=== PATIENT | female | born 1930 | race Caucasian/White ===

== ENCOUNTER 2016-04-25 11:07 | Emergency (ER) | payer MEDICARE ==
[~2016-04-25 11:07] MED LIST: AMLO10TA2 PO; ARAV1TAB PO; ASPI1TAB PO; ASPI81TA85 PO; ATOR1TAB19 PO; AUGM875T27 PO; DONETAB5 PO; FERR32TA PO; FOLI1TAB86 PO; FOLI400T PO; FOSA70TA PO; HYDR20VL IV; LEFL10TA2 PO; LIDO1DIS2 TD; LISI10TA4 PO; MERO500I IV; METO50TA2 PO; RANI75SY PO; SIMV40TA2 PO; TRAM50TA2 PO; TRAZ100T4 PO; TRAZ25TA PO; TRAZ50TA2 PO; TRAZ50TA4 PO; TYLE325T5 PO; VALS1TAB49 PO; VITA100037 PO; VITA100066 PO; [UNRECOGNIZED DRUG - CODE] XX
--- NOTE | 2016-04-25 12:47 | EDDOCDS ---
Nurse's Notes [facility] Name: Dara Modi Age: 85 yrs Sex: Female : 1930 Arrival Date: 04/25/2016 Time: 11:07 Bed PR Private MD: Sumi Mendes E Diagnosis: Pain in left shoulder Presentation: 04/25 11:12 Presenting complaint: Patient states: patient states pain and swelling in left shoulder ml6 x 1 month, denies injury, sent here from [facility] by Dr. Mendes. Adult Sepsis Screening: The patient does not have new or worsening altered mentation. Patient's respiratory rate is less than 22. Systolic blood pressure is greater than 100. Patient has a qSOFA score of 0- Negative Sepsis Screen. Suicide/Homicide risk assessment- the patient denies having any suicidal and/or homicidal ideations and does not present with any other emotional, behavioral or mental health complaints. 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 Transition of care: patient was not received from another setting of care. 11:12 Acuity: SCOTT Level 4 ml6 11:12 Method Of Arrival: Walkin/Carried/Asstd ml6 Triage Assessment: 11:17 General: Appears in no apparent distress, Behavior is appropriate for age, cooperative. ml6 Pain: Location: anterior aspect of left shoulder and posterior aspect of left shoulder Pain currently is 3 out of 10 on a pain scale. Pain does not radiate. Quality of pain is described as aching, Pain began 2-3 days ago Is continuous Alleviated by nothing. Aggravated by increased activity. Neurological: No deficits noted. Cardiovascular: No deficits noted. Respiratory: No deficits noted. GI: No deficits noted. Musculoskeletal: Circulation, motion, and sensation intact Capillary refill < 3 seconds is brisk in bilateral fingers toes Range of motion limited in left shoulder, left elbow, left wrist, left hip, left knee, left ankle, right shoulder, right elbow, right wrist, right hip, right knee and right ankle. Historical: - Allergies: PENICILLINS; - Home Meds: 1. atorvastatin 10 mg oral tab 1 tab once daily (Last dose: 04/24/2016 20:00) 2. donepezil 5 mg oral TbDL 1 tab nightly (Last dose: 04/24/2016 20:00) 3. ferrous gluconate 324 mg (36 mg iron) Oral tab daily (Last dose: 04/25/2016 09:00) 4. folic acid 400 mcg Oral tab 1 tab once daily (Last dose: 04/25/2016 09:00) 5. leflunomide 10 mg oral tab 1 tab once daily (Last dose: 04/25/2016 09:00) 6. metoprolol tartrate 50 mg Oral tab once daily (Last dose: 04/25/2016 09:00) 7. Trazodone Oral 50 mg tab take 1/2 to 1 tab at bedtime (Last dose: 04/24/2016 20:00) 8. valsartan 40 mg oral tab 1 tab nightly (Last dose: 04/25/2016 09:00) 9. Vitamin D3 1,000 unit oral tab daily (Last dose: 04/25/2016 09:00) - PMHx: Dementia; Hypercholesterolemia; Hypertension; Rheumatoid Arthritis; - PSHx: nodules removed from hands; 2 breast operations; Cataract Surgery- Bilateral; spinal cyst removal; Carotid surgery; Hysterectomy; - Social history: Smoking status: Patient states was never smoker of tobacco. No barriers to communication noted, Speaks appropriately for age. - Family history: Not pertinent. - : The pt / caregiver states he / she is not on anticoagulants. Home medication list is obtained from the patient. - Exposure Risk Screening:: None identified. Screenin:09 Infection Control. [facility] 12:44 Screening information is obtained from the patient. Fall risk: At risk due to gait pml disturbance. Assistance ADL's: requires no assistance with activities of daily living. Abuse/DV Screen: The patient / caregiver reports he/she is: not in a situation that causes fear, pain or injury. Nutritional screening: No deficits noted. Advance Directives: Currently, there is no health care proxy. home support is adequate. Assessment: 12:44 General: Appears in no apparent distress, Behavior is appropriate for age, cooperative. pml Pain: Location: right shoulder. Neurological: Level of Consciousness is awake, alert, Oriented to person, place, time. Cardiovascular: Capillary refill < 3 seconds. Respiratory: Airway is patent Respiratory effort is even, unlabored. GI: Abdomen is non- distended. Derm: Skin is pink, warm & dry. Musculoskeletal: Circulation, motion, and sensation intact Capillary refill < 3 seconds. Vital Signs: 11:09 BP 154 / 79; Pulse 68; Resp 16; Temp 97.0(O); Pulse Ox 98% on R/A; Weight 43.09 kg (R); elp Height 5 ft. 0 in. (152.40 cm) (R); Pain 7/10; 12:41 BP 179 / 89; Pulse 70; Resp 18; Temp 97.0(T); Pulse Ox 95% on R/A; Pain 7/10; rs6 11:09 Body Mass Index 18.55 (43.09 kg, 152.40 cm) elp Vitals: 11:09 Log In Time: April 25, 2016 at 11:07. elp ED Course: 11:09 Patient visited by Amada Lucio PCA. elp 11:09 Sumi Mendes is Private Physician. elp 11:09 Patient moved to Waiting elp 11:10 Patient visited by Amada Lucio PCA. elp 11:10 Patient moved to Pre RCE elp 11:12 Triage Initiated ml6 11:18 Patient moved to Triage 2 ml6 11:25 [facility]ador [facility]. dt4 11:25 Danny Sarmiento MD is Attending Physician. dt4 11:25 Patient visited by Veronika Amador PA-C. dt4 11:39 Patient moved to TR4 [facility] 12:20 [facility] Payment Agreement was scanned into [employer] and attached to record. lg 12:37 Patient moved to PR1 / 25 rs6 12:39 [facility] is Referral Physician. dt4 12:40 Patient moved to PR2 / 26 jb5 12:42 Patient visited by Adri Hamm PCA. rs6 12:44 The patient / caregiver is instructed regarding the plan of care and ED course. Patient pml has correct armband on for positive identification. Bed in low position. Call light in reach. 12:44 No IV's were initiated during this patient's visit. No procedures done that require pml assistance. Order Results: There are currently no results for this order. Outcome: 12:39 Discharge ordered by Provider. dt4 12:44 Discharge Assessment: Patient awake, alert and oriented x 3. No cognitive and/or pml functional deficits noted. Patient verbalized understanding of disposition instructions. patient administered narcotics - no. The following High Risk Discharge criteria are identified: None. Discharged to group home. Report called to RN 7th floor. Condition: good Condition: stable. Discharge instructions given to patient, Instructed on discharge instructions, follow up and referral plans. Demonstrated understanding of instructions, Pt was receptive of discharge instructions/ teaching. No special radiology studies were completed. Property :Personal belongings accompany Pt. 12:46 Patient left the ED. pml Signatures: Lloyd Motley, Reg Reg lg Rohini Alberts, HEAD SILVERMAN HEAD SILVERMAN jb5 Louis Jarvis RN RN ml6 Camryn Larry RN RN pml Amada Lucio, HEAD SILVERMAN HEAD SILVERMAN elp Veronika Amador, PA-Tyra PA-C dt4 Adri Hamm, HEAD SILVERMAN HEAD SILVERMAN rs6 Corrections: (The following items were deleted from the chart) 11:18 11:12 Presenting complaint: Patient states: patient states pain and swelling in left ml6 shoulder, denies injury ml6 MTDD
--- NOTE | 2016-04-25 12:47 | EDDOCDS ---
Physician Documentation [facility] Name: Dara Modi Age: 85 yrs Sex: Female : 1930 Arrival Date: 04/25/2016 Time: 11:07 Bed Private MD: Smui Mendes E Disposition: 04/25/16 12:39 Discharged to Home/Self Care. Impression: Pain in left shoulder. - Condition is Stable. - Discharge Instructions: Arthralgia. - Medication Reconciliation, Local Pharmacy Hours form. - Follow up: Emergency Department; When: As needed; Reason: Worsening of conditions. Follow up: Private Physician; When: 2 - 3 days; Reason: Wound/Symptom Recheck, Recheck today's complaints, Continuance of care. Follow up: [facility]; When: Call to arrange an appointment; Reason: Wound/Symptom Recheck, Further diagnostic work-up, Recheck today's complaints, Continuance of care, To establish care. - Problem is new. - Symptoms are unchanged. - Notes: THERE WAS NO FRACTURE ON YOUR XRAYS TODAY, BUT THERE WAS SOME BONE EROSION WHERE YOUR ROTATOR CUFF ATTACHES TO YOUR SHOULDER. PLEASE FOLLOW UP WITH YOUR PRIMARY CARE PROVIDER OR ORTHOPEDICS, OR BOTH, TO FURTHER EVALUATE THESE SYMPTOMS. TYLENOL DIRECTED FOR PAIN. Historical: - Allergies: PENICILLINS; - Home Meds: 1. atorvastatin 10 mg oral tab 1 tab once daily (Last dose: 04/24/2016 20:00) 2. donepezil 5 mg oral TbDL 1 tab nightly (Last dose: 04/24/2016 20:00) 3. ferrous gluconate 324 mg (36 mg iron) Oral tab daily (Last dose: 04/25/2016 09:00) 4. folic acid 400 mcg Oral tab 1 tab once daily (Last dose: 04/25/2016 09:00) 5. leflunomide 10 mg oral tab 1 tab once daily (Last dose: 04/25/2016 09:00) 6. metoprolol tartrate 50 mg Oral tab once daily (Last dose: 04/25/2016 09:00) 7. Trazodone Oral 50 mg tab take 1/2 to 1 tab at bedtime (Last dose: 04/24/2016 20:00) 8. valsartan 40 mg oral tab 1 tab nightly (Last dose: 04/25/2016 09:00) 9. Vitamin D3 1,000 unit oral tab daily (Last dose: 04/25/2016 09:00) - PMHx: Dementia; Hypercholesterolemia; Hypertension; Rheumatoid Arthritis; - PSHx: nodules removed from hands; 2 breast operations; Cataract Surgery- Bilateral; spinal cyst removal; Carotid surgery; Hysterectomy; - Social history: Smoking status: Patient states was never smoker of tobacco. No barriers to communication noted, Speaks appropriately for age. - Family history: Not pertinent. - : The pt / caregiver states he / she is not on anticoagulants. Home medication list is obtained from the patient. - Exposure Risk Screening:: None identified. Vital Signs: 04/25 11:09 BP 154 / 79; Pulse 68; Resp 16; Temp 97.0(O); Pulse Ox 98% on R/A; Weight 43.09 kg / 95 elp lbs (R); Height 5 ft. 0 in. (152.40 cm) (R); Pain 7/10; 12:41 BP 179 / 89; Pulse 70; Resp 18; Temp 97.0(T); Pulse Ox 95% on R/A; Pain 7/10; rs6 11:09 Body Mass Index 18.55 (43.09 kg, 152.40 cm) elp MDM: 11:30 Financial registration complete. lg 11:35 Shoulder, Complete Ordered. EDMS 12:20 [facility] Payment Agreement was scanned into [employer] and attached to record. lg Signatures: Dispatcher [employer] EDNY Lloyd Motley, Tarun Reg lg Louis Jarvis RN RN ml6 Camryn Larry RN RN pml Veronika Amador, LLOYD DESAI dt4 The chart was reviewed and I authenticate all verbal orders and agree with the evaluation and treatment provided.Attachments: 12:20 [facility] Payment Agreement lg MTDD
--- NOTE | 2016-04-25 12:49 | REP ---
LEFT SHOULDER: Three views of the left shoulder are performed. I see no acute fracture or dislocation. Mild smooth erosive change is seen along the superolateral humeral head at the tendinous insertion of the rotator cuff tendons. IMPRESSION: No acute fracture or dislocation. Signed by Sabino Bae MD 04/25/2016 01:30 P
--- NOTE | 2016-04-27 13:48 | EDDOCDS ---
Physician Documentation [facility] Name: Dara Modi Age: 85 yrs Sex: Female : 1930 Arrival Date: 04/25/2016 Time: 11:07 Bed Private MD: Sumi Mendes E Disposition: 04/25/16 12:39 Discharged to Home/Self Care. Impression: Pain in left shoulder. - Condition is Stable. - Discharge Instructions: Arthralgia. - Medication Reconciliation, Local Pharmacy Hours form. - Follow up: Emergency Department; When: As needed; Reason: Worsening of conditions. Follow up: Private Physician; When: 2 - 3 days; Reason: Wound/Symptom Recheck, Recheck today's complaints, Continuance of care. Follow up: [facility]; When: Call to arrange an appointment; Reason: Wound/Symptom Recheck, Further diagnostic work-up, Recheck today's complaints, Continuance of care, To establish care. - Problem is new. - Symptoms are unchanged. - Notes: THERE WAS NO FRACTURE ON YOUR XRAYS TODAY, BUT THERE WAS SOME BONE EROSION WHERE YOUR ROTATOR CUFF ATTACHES TO YOUR SHOULDER. PLEASE FOLLOW UP WITH YOUR PRIMARY CARE PROVIDER OR ORTHOPEDICS, OR BOTH, TO FURTHER EVALUATE THESE SYMPTOMS. TYLENOL DIRECTED FOR PAIN. Historical: - Allergies: PENICILLINS; - Home Meds: 1. atorvastatin 10 mg oral tab 1 tab once daily (Last dose: 04/24/2016 20:00) 2. donepezil 5 mg oral TbDL 1 tab nightly (Last dose: 04/24/2016 20:00) 3. ferrous gluconate 324 mg (36 mg iron) Oral tab daily (Last dose: 04/25/2016 09:00) 4. folic acid 400 mcg Oral tab 1 tab once daily (Last dose: 04/25/2016 09:00) 5. leflunomide 10 mg oral tab 1 tab once daily (Last dose: 04/25/2016 09:00) 6. metoprolol tartrate 50 mg Oral tab once daily (Last dose: 04/25/2016 09:00) 7. Trazodone Oral 50 mg tab take 1/2 to 1 tab at bedtime (Last dose: 04/24/2016 20:00) 8. valsartan 40 mg oral tab 1 tab nightly (Last dose: 04/25/2016 09:00) 9. Vitamin D3 1,000 unit oral tab daily (Last dose: 04/25/2016 09:00) - PMHx: Dementia; Hypercholesterolemia; Hypertension; Rheumatoid Arthritis; - PSHx: nodules removed from hands; 2 breast operations; Cataract Surgery- Bilateral; spinal cyst removal; Carotid surgery; Hysterectomy; - Social history: Smoking status: Patient states was never smoker of tobacco. No barriers to communication noted, Speaks appropriately for age. - Family history: Not pertinent. - : The pt / caregiver states he / she is not on anticoagulants. Home medication list is obtained from the patient. - Exposure Risk Screening:: None identified. Vital Signs: 04/25 11:09 BP 154 / 79; Pulse 68; Resp 16; Temp 97.0(O); Pulse Ox 98% on R/A; Weight 43.09 kg / 95 elp lbs (R); Height 5 ft. 0 in. (152.40 cm) (R); Pain 7/10; 12:41 BP 179 / 89; Pulse 70; Resp 18; Temp 97.0(T); Pulse Ox 95% on R/A; Pain 7/10; rs6 11:09 Body Mass Index 18.55 (43.09 kg, 152.40 cm) elp MDM: 11:30 Financial registration complete. lg 11:35 Shoulder, Complete Ordered. EDMS 12:20 [facility] Payment Agreement was scanned into [employer] and attached to record. lg 14:49 T-Sheet-- Draft Copy was scanned into [employer] and attached to record. gb 14:49 Radiology Report was scanned into [employer] and attached to record. gb Signatures: Dispatcher [employer] EDMS Sharmin Gongora, Reg Reg gb Lloyd Motley, Reg Reg lg Louis Jarvis RN RN ml6 Camryn Larry RN RN pml Tschudi, Diane, PA-C PA-C dt4 The chart was reviewed and I authenticate all verbal orders and agree with the evaluation and treatment provided.Attachments: 12:20 [facility] Payment Agreement lg 14:49 T-Sheet-- Draft Copy gb Chart Complete MTDD
--- NOTE | 2016-04-27 13:48 | EDDOCDS ---
Physician Documentation [facility] Name: Dara Modi Age: 85 yrs Sex: Female : 1930 Arrival Date: 04/25/2016 Time: 11:07 Bed Private MD: Sumi Mendes E Disposition: 04/25/16 12:39 Discharged to Home/Self Care. Impression: Pain in left shoulder. - Condition is Stable. - Discharge Instructions: Arthralgia. - Medication Reconciliation, Local Pharmacy Hours form. - Follow up: Emergency Department; When: As needed; Reason: Worsening of conditions. Follow up: Private Physician; When: 2 - 3 days; Reason: Wound/Symptom Recheck, Recheck today's complaints, Continuance of care. Follow up: [facility]; When: Call to arrange an appointment; Reason: Wound/Symptom Recheck, Further diagnostic work-up, Recheck today's complaints, Continuance of care, To establish care. - Problem is new. - Symptoms are unchanged. - Notes: THERE WAS NO FRACTURE ON YOUR XRAYS TODAY, BUT THERE WAS SOME BONE EROSION WHERE YOUR ROTATOR CUFF ATTACHES TO YOUR SHOULDER. PLEASE FOLLOW UP WITH YOUR PRIMARY CARE PROVIDER OR ORTHOPEDICS, OR BOTH, TO FURTHER EVALUATE THESE SYMPTOMS. TYLENOL DIRECTED FOR PAIN. Historical: - Allergies: PENICILLINS; - Home Meds: 1. atorvastatin 10 mg oral tab 1 tab once daily (Last dose: 04/24/2016 20:00) 2. donepezil 5 mg oral TbDL 1 tab nightly (Last dose: 04/24/2016 20:00) 3. ferrous gluconate 324 mg (36 mg iron) Oral tab daily (Last dose: 04/25/2016 09:00) 4. folic acid 400 mcg Oral tab 1 tab once daily (Last dose: 04/25/2016 09:00) 5. leflunomide 10 mg oral tab 1 tab once daily (Last dose: 04/25/2016 09:00) 6. metoprolol tartrate 50 mg Oral tab once daily (Last dose: 04/25/2016 09:00) 7. Trazodone Oral 50 mg tab take 1/2 to 1 tab at bedtime (Last dose: 04/24/2016 20:00) 8. valsartan 40 mg oral tab 1 tab nightly (Last dose: 04/25/2016 09:00) 9. Vitamin D3 1,000 unit oral tab daily (Last dose: 04/25/2016 09:00) - PMHx: Dementia; Hypercholesterolemia; Hypertension; Rheumatoid Arthritis; - PSHx: nodules removed from hands; 2 breast operations; Cataract Surgery- Bilateral; spinal cyst removal; Carotid surgery; Hysterectomy; - Social history: Smoking status: Patient states was never smoker of tobacco. No barriers to communication noted, Speaks appropriately for age. - Family history: Not pertinent. - : The pt / caregiver states he / she is not on anticoagulants. Home medication list is obtained from the patient. - Exposure Risk Screening:: None identified. Vital Signs: 04/25 11:09 BP 154 / 79; Pulse 68; Resp 16; Temp 97.0(O); Pulse Ox 98% on R/A; Weight 43.09 kg / 95 elp lbs (R); Height 5 ft. 0 in. (152.40 cm) (R); Pain 7/10; 12:41 BP 179 / 89; Pulse 70; Resp 18; Temp 97.0(T); Pulse Ox 95% on R/A; Pain 7/10; rs6 11:09 Body Mass Index 18.55 (43.09 kg, 152.40 cm) elp MDM: 11:30 Financial registration complete. lg 11:35 Shoulder, Complete Ordered. EDMS 12:20 [facility] Payment Agreement was scanned into [employer] and attached to record. lg 14:49 T-Sheet-- Draft Copy was scanned into [employer] and attached to record. gb 14:49 Radiology Report was scanned into [employer] and attached to record. gb Signatures: Dispatcher [employer] EDMS Sharmin Gongora, Reg Reg gb Lloyd Motley, Reg Reg lg Louis Jarvis RN RN ml6 Camryn Larry RN RN pml Tschudi, Diane, PA-C PA-C dt4 The chart was reviewed and I authenticate all verbal orders and agree with the evaluation and treatment provided.Attachments: 12:20 [facility] Payment Agreement lg 14:49 T-Sheet-- Draft Copy gb Chart Complete MTDD
--- NOTE | 2016-04-27 13:48 | EDDOCDS ---
Nurse's Notes [facility] Name: Dara Modi Age: 85 yrs Sex: Female : 1930 Arrival Date: 04/25/2016 Time: 11:07 Bed PR Private MD: Sumi Mendes E Diagnosis: Pain in left shoulder Presentation: 04/25 11:12 Presenting complaint: Patient states: patient states pain and swelling in left shoulder ml6 x 1 month, denies injury, sent here from [facility] by Dr. Mendes. Adult Sepsis Screening: The patient does not have new or worsening altered mentation. Patient's respiratory rate is less than 22. Systolic blood pressure is greater than 100. Patient has a qSOFA score of 0- Negative Sepsis Screen. Suicide/Homicide risk assessment- the patient denies having any suicidal and/or homicidal ideations and does not present with any other emotional, behavioral or mental health complaints. Status: Patient is not a chief optometry service or dependent. Transition of care: patient was not received from another setting of care. 11:12 Acuity: SCOTT Level 4 ml6 11:12 Method Of Arrival: Walkin/Carried/Asstd ml6 Triage Assessment: 11:17 General: Appears in no apparent distress, Behavior is appropriate for age, cooperative. ml6 Pain: Location: anterior aspect of left shoulder and posterior aspect of left shoulder Pain currently is 3 out of 10 on a pain scale. Pain does not radiate. Quality of pain is described as aching, Pain began 2-3 days ago Is continuous Alleviated by nothing. Aggravated by increased activity. Neurological: No deficits noted. Cardiovascular: No deficits noted. Respiratory: No deficits noted. GI: No deficits noted. Musculoskeletal: Circulation, motion, and sensation intact Capillary refill < 3 seconds is brisk in bilateral fingers toes Range of motion limited in left shoulder, left elbow, left wrist, left hip, left knee, left ankle, right shoulder, right elbow, right wrist, right hip, right knee and right ankle. Historical: - Allergies: PENICILLINS; - Home Meds: 1. atorvastatin 10 mg oral tab 1 tab once daily (Last dose: 04/24/2016 20:00) 2. donepezil 5 mg oral TbDL 1 tab nightly (Last dose: 04/24/2016 20:00) 3. ferrous gluconate 324 mg (36 mg iron) Oral tab daily (Last dose: 04/25/2016 09:00) 4. folic acid 400 mcg Oral tab 1 tab once daily (Last dose: 04/25/2016 09:00) 5. leflunomide 10 mg oral tab 1 tab once daily (Last dose: 04/25/2016 09:00) 6. metoprolol tartrate 50 mg Oral tab once daily (Last dose: 04/25/2016 09:00) 7. Trazodone Oral 50 mg tab take 1/2 to 1 tab at bedtime (Last dose: 04/24/2016 20:00) 8. valsartan 40 mg oral tab 1 tab nightly (Last dose: 04/25/2016 09:00) 9. Vitamin D3 1,000 unit oral tab daily (Last dose: 04/25/2016 09:00) - PMHx: Dementia; Hypercholesterolemia; Hypertension; Rheumatoid Arthritis; - PSHx: nodules removed from hands; 2 breast operations; Cataract Surgery- Bilateral; spinal cyst removal; Carotid surgery; Hysterectomy; - Social history: Smoking status: Patient states was never smoker of tobacco. No barriers to communication noted, Speaks appropriately for age. - Family history: Not pertinent. - : The pt / caregiver states he / she is not on anticoagulants. Home medication list is obtained from the patient. - Exposure Risk Screening:: None identified. Screenin:09 Infection Control. [facility] [place] 12:44 Screening information is obtained from the patient. Fall risk: At risk due to gait pml disturbance. Assistance ADL's: requires no assistance with activities of daily living. Abuse/DV Screen: The patient / caregiver reports he/she is: not in a situation that causes fear, pain or injury. Nutritional screening: No deficits noted. Advance Directives: Currently, there is no health care proxy. home support is adequate. Assessment: 12:44 General: Appears in no apparent distress, Behavior is appropriate for age, cooperative. pml Pain: Location: right shoulder. Neurological: Level of Consciousness is awake, alert, Oriented to person, place, time. Cardiovascular: Capillary refill < 3 seconds. Respiratory: Airway is patent Respiratory effort is even, unlabored. GI: Abdomen is non- distended. Derm: Skin is pink, warm & dry. Musculoskeletal: Circulation, motion, and sensation intact Capillary refill < 3 seconds. Vital Signs: 11:09 BP 154 / 79; Pulse 68; Resp 16; Temp 97.0(O); Pulse Ox 98% on R/A; Weight 43.09 kg (R); elp Height 5 ft. 0 in. (152.40 cm) (R); Pain 7/10; 12:41 BP 179 / 89; Pulse 70; Resp 18; Temp 97.0(T); Pulse Ox 95% on R/A; Pain 7/10; rs6 11:09 Body Mass Index 18.55 (43.09 kg, 152.40 cm) el Vitals: 11:09 Log In Time: April 25, 2016 at 11:07. elp ED Course: 11:09 Patient visited by Amada Lucio PCA. elp 11:09 Sumi Mendes is Private Physician. elp 11:09 Patient moved to Waiting elp 11:10 Patient visited by Amada Lucio PCA. elp 11:10 Patient moved to Pre RCE elp 11:12 Triage Initiated ml6 11:18 Patient moved to Triage 2 ml6 11:25 [facility] dt4 11:25 Danny Sarmiento MD is Attending Physician. dt4 11:25 Patient visited by Veronika Amador PA-C. dt4 11:39 Patient moved to TR4 pml 12:20 [facility] Payment Agreement was scanned into Yill[employer] and attached to record. lg 12:37 Patient moved to PR1 / 25 rs6 12:39 [facility] is Referral Physician. dt4 12:40 Patient moved to PR2 / 26 jb5 12:42 Patient visited by Adri Hamm PCA. rs6 12:44 The patient / caregiver is instructed regarding the plan of care and ED course. Patient pml has correct armband on for positive identification. Bed in low position. Call light in reach. 12:44 No IV's were initiated during this patient's visit. No procedures done that require pml assistance. 13:18 Shoulder, Complete Returned. EDMS 14:49 T-Sheet-- Draft Copy was scanned into Yillio and attached to record. gb 14:49 Radiology Report was scanned into Yill[employer] and attached to record. gb Order Results: Radiology Order: Shoulder, Complete Test: Shoulder, Complete REASON FOR EXAMINATION: LEFT SHOULDER PAIN, NO KNOWN INJURY; LEFT SHOULDER:; ; Three views of the left shoulder are performed.; ; I see no acute fracture or dislocation. Mild smooth erosive change is seen along; the superolateral humeral head at the tendinous insertion of the rotator cuff; tendons.; ; IMPRESSION:; ; No acute fracture or dislocation.; ; ; Signed by; Sabino Bae MD 04/25/2016 01:30 P; Outcome: 12:39 Discharge ordered by Provider. dt4 12:44 Discharge Assessment: Patient awake, alert and oriented x 3. No cognitive and/or pml functional deficits noted. Patient verbalized understanding of disposition instructions. patient administered narcotics - no. The following High Risk Discharge criteria are identified: None. Discharged to snf. Report called to RN 7th floor. Condition: good Condition: stable. Discharge instructions given to patient, Instructed on discharge instructions, follow up and referral plans. Demonstrated understanding of instructions, Pt was receptive of discharge instructions/ teaching. No special radiology studies were completed. Property :Personal belongings accompany Pt. 12:46 Patient left the ED. pml Signatures: Dispatcher [employer] EDMS Sharmin Gongora, Reg Reg gb Lloyd Motley, Reg Reg lg Rohini Alberts, FISCAL MANAGER FISCAL MANAGER jb5 Louis Jarvis, RN RN ml6 Camryn Larry RN RN pml Amada Lucio, FISCAL MANAGER FISCAL MANAGER jamiep Veronika Amador, PA-C PA-C dt4 Adri Hamm, FISCAL MANAGER FISCAL MANAGER rs6 Corrections: (The following items were deleted from the chart) 11:18 11:12 Presenting complaint: Patient states: patient states pain and swelling in left ml6 shoulder, denies injury ml6 Chart Complete MTDD
== END 2016-04-25 12:46 | disposition home or self-care (01) ==
LOC: M ED 11:07
DX: M25.512 Pain in left shoulder (principal); F03.90 Unspecified dementia, unspecified severity, without behavioral disturbance, psychotic disturbance, mood disturbance, and anxiety; E78.00 Pure hypercholesterolemia, unspecified; I10 Essential (primary) hypertension; M06.9 Rheumatoid arthritis, unspecified; Z79.899 Other long term (current) drug therapy; Z88.0 Allergy status to penicillin

== ENCOUNTER → 2016-05-02 | Outpatient (REF) | payer MEDICARE | END | disposition home or self-care (01) | LOC: SKLAB7 20:35 | PROVIDERS: ATTEND Internal Medicine | DX: R19.7 Diarrhea, unspecified (principal) ==

== ENCOUNTER → 2016-05-26 | Outpatient (REF) | payer MEDICARE ==
[2016-05-26 08:42] LABS: MEAN CORPUSCULAR HEMOGLOBIN 26.1 pg (27.0-33.0); MEAN CORPUSCULAR HGB CONC 31.3 g/dl (32.0-36.5); MEAN CORPUSCULAR VOLUME 83.5 fl (80.0-96.0); RED CELL DISTRIBUTION WIDTH 15.6 % (11.5-14.5); WHITE BLOOD COUNT 5.1 K/mm3 (4.0-10.0)
[2016-05-26 08:55] LABS: CALCIUM LEVEL 8.9 MG/DL (8.8-10.2); CREATININE FOR GFR 1.29 MG/DL (0.55-1.02); GLOMERULAR FILTRATION RATE 41.8 (>32)
== END ==
LOC: SKLAB7 07:00
PROVIDERS: ATTEND Internal Medicine
DX: Z51.81 Encounter for therapeutic drug level monitoring (principal); Z79.899 Other long term (current) drug therapy

== ENCOUNTER → 2016-06-28 | Outpatient (REF) | payer MEDICARE ==
[~2016-06-28] MED LIST changes: +ACET-654 PO; +ALBU83IN INH; +DULC10SU2 PR; +ENEMENE3 PR; +LIDO1OIN2 TOP; +METO75TA PO; +MILKSUS PO; +PRED20TA PO; +TUSSLIQ PO; +VITMTA PO
--- NOTE | 2016-06-28 12:48 | REP ---
REASON: Cough, wheezing and dyspnea. COMPARISON: 03/21/2016 The technique utilized in obtaining the radiograph has magnified the cardiac silhouette and accentuated the interstitial markings. Fibrotic changes are noted status quo. No acute patchy parenchymal opacities or pleural effusions have developed. The heart is not enlarged. There is no change in the osseous structures. IMPRESSION: Stable chronic changes without plain radiographic evidence of acute cardiopulmonary disease. Signed by Jose Guadalupe Hackett DO 06/28/2016 01:09 P
== END ==
LOC: SKLAB7 11:54 → M RAD 11:54
PROVIDERS: ATTEND Internal Medicine
DX: R05 Cough (principal); R06.02 Shortness of breath; R06.2 Wheezing

== ENCOUNTER 2016-07-01 14:51 | Inpatient (IN) | payer MEDICARE ==
[~2016-07-01] VITALS: Ht 154.9 cm; Wt 51.5 kg
[~2016-07-01 14:51] MED LIST changes: -ACET-654 PO; -ALBU83IN INH; -DULC10SU2 PR; -ENEMENE3 PR; -LIDO1OIN2 TOP; -METO75TA PO; -MILKSUS PO; -PRED20TA PO; -TUSSLIQ PO; -VITMTA PO
--- NOTE | 2016-07-01 16:16 | REP ---
CHEST, TWO VIEWS: REASON: Cough and dyspnea. COMPARISON: Portable examination of 06/28/2016. Since the last examination a patchy opacity has developed in the left lower lobe. Lung velazquez are otherwise unchanged with the exception of new left CP angle blunting. The cardiomediastinal silhouette is stable. There is no significant change in the appearance of the osseous structures. IMPRESSION: Left lower lobe pneumonia with a small left pleural effusion. Signed by Jose Guadalupe Hackett DO 07/01/2016 04:20 P
[2016-07-01 16:27] LABS: MEAN CORPUSCULAR HEMOGLOBIN 25.8 pg (27.0-33.0); MEAN CORPUSCULAR HGB CONC 31.2 g/dl (32.0-36.5); MEAN CORPUSCULAR VOLUME 82.6 fl (80.0-96.0); PLATELET COUNT, AUTOMATED 456 k/mm3 (150-450); RED CELL DISTRIBUTION WIDTH 15.9 % (11.5-14.5); WHITE BLOOD COUNT 28.7 K/mm3 (4.0-10.0)
[2016-07-01 16:32] LABS: ABG BASE EXCESS 0.1 (-2.0-2.0); ABG HCO3 23.2 MEQ/L (22.0-26.0); ABG PARTIAL PRESSURE CO2 32.7 mmHg (35.0-45.0); ABG PARTIAL PRESSURE O2 65.4 mmHg (75.0-100.0); ABG STANDARD HCO3 24.5 MEQ/L (22.0-26.0); ABG TOTAL CO2 24.2 MEQ/L (23.0-31.0); ABG pH (ARTERIAL) 7.469 UNITS (7.350-7.450)
[2016-07-01 16:37] LABS: BANDS 4 % (< 11)
[2016-07-01 17:11] LABS: ALBUMIN 2.5 GM/DL (3.2-5.2); ALBUMIN/GLOBULIN RATIO 0.69 (1.00-1.93); BILIRUBIN,DIRECT 0.2 MG/DL (0.0-0.2); BILIRUBIN,TOTAL 0.4 MG/DL (0.2-1.0); CALCIUM LEVEL 8.9 MG/DL (8.8-10.2); CREATININE FOR GFR 1.35 MG/DL (0.55-1.02); GLOMERULAR FILTRATION RATE 39.7 (>32); POTASSIUM SERUM 3.7 MEQ/L (3.5-5.1); TOTAL PROTEIN 6.1 GM/DL (6.4-8.2)
[2016-07-01] MEDS ORDERED: LevoFLOXacin IV 500 MG in APPROPRIATE DILUENT 1 EA IV ONE (17:15)
[2016-07-01] MEDS ORDERED: PRED20TA PO (17:27)
[2016-07-01] MEDS ORDERED: ALBU83IN INH ×2 (17:27→17:29)
[2016-07-01] MEDS ORDERED: LIDO1OIN2 TOP (17:29)
[2016-07-01] MEDS ORDERED: NS 500 ML IV ONE (17:30)
[2016-07-01] MEDS ORDERED: TUSSLIQ PO (17:37)
[2016-07-01] MEDS ORDERED: TRAM50TA2 PO (17:40)
[2016-07-01] MEDS ORDERED: ACET-654 PO ×2 (17:40→17:46)
[2016-07-01] MEDS ORDERED: ARAV1TAB PO (17:40)
[2016-07-01] MEDS ORDERED: AMLO10TA2 PO (17:46)
[2016-07-01] MEDS ORDERED: DULC10SU2 PR (17:46)
[2016-07-01] MEDS ORDERED: VITMTA PO (17:46)
[2016-07-01] MEDS ORDERED: MILKSUS PO (17:46)
[2016-07-01] MEDS ORDERED: ENEMENE3 PR (17:46)
[2016-07-01] MEDS ORDERED: METO75TA PO (17:46)
[2016-07-01] MEDS ORDERED: MOM 30ML SUSPENSION UDC PO PRN (20:15)
[2016-07-01] MEDS ORDERED: LIDOCAINE 5% OINT 30 GM TOP PRN (20:15)
[2016-07-01] MEDS ORDERED: ACETAMINOPHEN TAB 650MG DOSE (2X325MG) PO PRN (20:15)
[2016-07-01] MEDS ORDERED: IPRATROPIUM 0.5MG/ALBUTEROL 2.5MG INH SOL UD 3ML (DUONEB)(J7620) NEB PRN (20:15)
[2016-07-01] MEDS ORDERED: BISACODYL 10 MG SUPP PR PRN (20:15)
[2016-07-01] MEDS ORDERED: ONDANSETRON 4MG/2ML VIAL (J2405) IV PRN (20:15)
[2016-07-01] MEDS: METOPROLOL TART 25 MG TABLET PO SCH (21:18)
[2016-07-01] MEDS: methylPREDNISolone INJ 125 MG/2 ML VIAL (J2930) IV SCH (22:12)
[2016-07-01] MEDS: ADVAIR DISKUS 500/50 INH PWD INH SCH (22:12)
[2016-07-01] MEDS: SENOKOT S TAB PO SCH (22:12)
[2016-07-01] MEDS: guaiFENesin ER 600 MG TAB PO SCH (22:12)
[2016-07-01] MEDS: DONEPEZIL 5 MG TAB PO SCH (22:12)
--- NOTE | 2016-07-01 22:54 | HPE ---
DATE OF ADMISSION: 07/01/2016 PRIMARY CARE PROVIDER: Sumi Mendes MD CHIEF COMPLAINT: Shortness of breath, hypoxia. HISTORY OF PRESENT ILLNESS: This is an 85-year-old female patient with underlying medical history of dementia, dyslipidemia, rheumatoid arthritis, hypertension from assisted living. Very poor historian. Presented with two day history of progressively worsening cough, shortness of breath, not on 02 at baseline with productive yellow phlegm and was found to be worsening hypoxic and was subsequently sent to the hospital. The patient denies any fever or chills. Denies any sick contacts. Denies any abdominal pain, chest pain, pressure or discomfort, but does report significant dyspnea and cough. Denies any nausea or vomiting, abdominal pain, palpitations. ALLERGIES: PENICILLIN with hives. PAST MEDICAL HISTORY: Dementia. Dyslipidemia. Rheumatoid arthritis. Hypertension. PAST SURGICAL HISTORY: Hand nodule removal. Two breast operations. Cataract surgery. Spinal cyst removal. Carotid surgery. Hysterectomy. SOCIAL HISTORY: Quit smoking more than 10 years ago. Does not drink alcoholic beverages. No illicit drug use. FAMILY HISTORY: Noncontributory. REVIEW OF SYSTEMS: 11-point review of systems are negative except for those mentioned in the HPI. HOME MEDICATIONS: - acetaminophen 650 mg by mouth every 4 hours as needed - DuoNebs inhalation four times a day as needed - Norvasc 10 mg by mouth daily - Dulcolax suppository 10 mg per rectum as needed daily - donepezil 5 mg by mouth every day - Arava 10 mg by mouth daily - lidocaine 5% ointment - metoprolol 75 mg by mouth twice a day - milk of magnesia 30 mL daily as needed - multivitamin 1 tablet by mouth daily - prednisone 40 mg by mouth at bedtime - fleet enema as needed - tramadol 25 mg by mouth every 6 hours as needed PHYSICAL EXAMINATION: VITAL SIGNS: Temperature 99.7, pulse 107, respirations 18, blood pressure 171/79, pulse oximetry 89% on 4 liters nasal cannula. EKG shows sinus tachycardia. GENERAL: The patient frail, in no acute distress. HEENT: Normocephalic, atraumatic. PULMONARY: Bilateral rhonchi and bilateral expiratory wheeze. CARDIAC: Mild tachycardia. ABDOMEN: Soft, nontender, positive bowel sounds. EXTREMITIES: Deformed multiple nodules bilateral upper and lower extremities. No edema bilateral lower extremities. LABORATORY: WBC 28.7, hemoglobin and hematocrit 12.1/38.7, platelets 456. Chemistry: Chloride 106, bicarbonate 25, BUN 29, creatinine 1.35, lactic acid 2.5. Chest x-ray shows left lower lobe pneumonia and small left pleural effusion. ASSESSMENT AND PLAN: This is an 85-year-old female patient with underlying medical history of rheumatoid arthritis, hypertension, dementia, dyslipidemia with questionable history of COPD admitted for: 1. Acute bronchitis and left lower lobe pneumonia. The patient started on Solu-Medrol 60 mg IV every 8 hours, nebulizer treatment, Mucinex. Advair has also been added. Levaquin has been added. Followup culture. Respiratory panel. Influenza negative. Followup blood cultures. 2. Leukocytosis secondary to steroids. Continue to follow. Acapella. Fi02 supplementation. 3. Hypertension. Continue home medications. Monitor blood pressure. Adjust as needed. 4. Dementia. Continue home medications. Supportive care. 5. Deep venous thrombosis (DVT) prophylaxis. Heparin subcutaneous. 6. Disposition planning. Pending clinical improvement. Physical therapy has been ordered. The patient DO NOT RESUSCITATE (DNR), DO NOT INTUBATE (DNI).
[2016-07-02] MEDS: IPRATROPIUM 0.5MG/ALBUTEROL 2.5MG INH SOL UD 3ML (DUONEB)(J7620) NEB SCH ×4 (03:05→21:31)
[2016-07-02] MEDS: methylPREDNISolone INJ 125 MG/2 ML VIAL (J2930) IV SCH (06:45)
[2016-07-02] MEDS: HEPARIN SOD (PORCINE) 5000 UNITS/ML VIAL SC SCH ×3 (06:45→20:37)
[2016-07-02 08:00] VITALS: BP 158/77
--- NOTE | 2016-07-02 08:19 | ECGEPIP ---
Stationary ECG Study [facility] - ED Test Date: 2016-07-01 Pat Name: CHANELLE JUDGE Department: Room: - Gender: F Torpedoman'S Mate: blanquita : 1930 Requested By: GARDENIA Andres Order Number: [id number] Reading MD: Travis Cornejo Measurements Intervals [place] Rate: 104 P: 65 OR: 119 QRS: 49 QRSD: 98 T: 47 QT: 319 QTc: 421 Interpretive Statements SINUS TACHYCARDIA WITH SHORT OR INTERVAL INC. RBBB SIMILAR TO 03/22/16 Electronically Signed On 07-02-2016 8:19:03 EDT by Travis Corneoj
[2016-07-02 08:54] LABS: CALCIUM LEVEL 8.4 MG/DL (8.8-10.2); CREATININE FOR GFR 1.09 MG/DL (0.55-1.02); GLOMERULAR FILTRATION RATE 50.8 (>32); MAGNESIUM LEVEL 2.1 MG/DL (1.8-2.4)
[2016-07-02] MEDS ORDERED: ENTER DRUG NAME HERE (PATIENT'S OWN MED) PO SCH (09:00)
[2016-07-02 09:02] LABS: MEAN CORPUSCULAR HEMOGLOBIN 26.3 pg (27.0-33.0); MEAN CORPUSCULAR HGB CONC 31.8 g/dl (32.0-36.5); MEAN CORPUSCULAR VOLUME 82.6 fl (80.0-96.0); RED CELL DISTRIBUTION WIDTH 15.8 % (11.5-14.5)
[2016-07-02] MEDS: ADVAIR DISKUS 500/50 INH PWD INH SCH ×2 (11:14→21:00)
[2016-07-02] MEDS: guaiFENesin ER 600 MG TAB PO SCH ×2 (11:15→20:36)
[2016-07-02] MEDS: SENOKOT S TAB PO SCH ×2 (11:15→20:37)
[2016-07-02] MEDS: amLODIPine 10 MG TAB PO SCH (11:19)
[2016-07-02] MEDS: PANTOPRAZOLE 40MG TAB (PROTONIX) PO SCH (11:19)
[2016-07-02] MEDS: MULTIVITAMINS/MINERALS THERAP 1 TAB PO SCH (11:19)
[2016-07-02] MEDS: METOPROLOL TART 25 MG TABLET PO SCH ×2 (11:20→20:36)
[2016-07-02 12:00] VITALS: BP 136/76
[2016-07-02] MEDS: ISOSORBIDE MON. (IMDUR) 30 MG XR TAB PO SCH (15:06)
[2016-07-02 16:00] VITALS: BP 164/79
[2016-07-02] MEDS: LevoFLOXacin IV 500 MG in APPROPRIATE DILUENT 1 EA IV SCH (18:00)
[2016-07-02] MEDS ORDERED: methylPREDNISolone INJ 125 MG/2 ML VIAL (J2930) IV SCH (18:00)
[2016-07-02] MEDS: methylPREDNISolone INJ 40 MG/1 ML VIAL (J2920) IV SCH (18:10)
--- NOTE | 2016-07-02 19:40 | IPN ---
DATE: 07/02/2016 SUBJECTIVE: The patient is seen and examined. No acute events overnight. Reported coughing to be much improved. Denies any chest pain, pressure or discomfort. Denies any fevers or chills. VITAL SIGNS: Temperature 96.9, pulse 79, respirations 18, blood pressure 136/76. Pulse oximetry 93% on two liters nasal cannula. LABORATORY DATA: WBC 24, hemoglobin and hematocrit 10.8 over 33.8, platelets 360. Chemistry: Sodium 143, potassium 4, chloride 107, bicarbonate 27, BUN 25, creatinine 1.09, lactic acid 1.1. C-reactive protein 19.2. MICROBIOLOGY: Coronavirus positive on respiratory panel. PHYSICAL EXAMINATION: GENERAL: The patient is frail, in no acute distress. HEENT: Normocephalic, atraumatic. PULMONARY: Bilateral rhonchi with bilateral expiratory wheeze. CARDIAC: Regular S1, S2. ABDOMEN: Soft, nontender. Positive bowel sounds. EXTREMITIES: Multiple deformed multiple nodules bilateral upper and lower extremities. No edema bilateral lower extremities. ASSESSMENT AND PLAN: 1. This is an 85-year-old female patient with underlying medical history of rheumatoid arthritis, hypertension, dementia, dyslipidemia, with questionable history of chronic obstructive pulmonary disease (COPD), admitted for acute bronchitis with left lower lobe pneumonia. Respiratory panel positive for coronavirus. The patient on tapered Solu-Medrol steroids, nebulizer treatments, Nasonex, Acapella. Advair has been added. Levaquin was given. C-reactive protein appreciated. Followup cultures. 2. Leukocytosis secondary to steroids. Continue recommendation as above. Acapella, FiO2. Continue antibiotics. 3. Hypertension. Continue home medication. Monitor blood pressure. Adjust as needed. 4. Dementia. Continue home medications, supportive care. 5. Deep venous thrombosis (DVT) prophylaxis. Heparin subcutaneous. DISPOSITION PLANNING: DO NOT RESUSCITATE/DO NOT INTUBATE (DNR/DNI). Physical therapy. Clinical improvement. Likely discharge over the next 24-48 hours.
[2016-07-02] MEDS: DONEPEZIL 5 MG TAB PO SCH (20:37)
[2016-07-02 22:00] VITALS: BP 173/79
[2016-07-03] MEDS: IPRATROPIUM 0.5MG/ALBUTEROL 2.5MG INH SOL UD 3ML (DUONEB)(J7620) NEB SCH ×4 (02:01→18:25)
[2016-07-03 06:00] VITALS: BP 136/80
[2016-07-03] MEDS: HEPARIN SOD (PORCINE) 5000 UNITS/ML VIAL SC SCH ×3 (06:13→19:44)
[2016-07-03] MEDS: methylPREDNISolone INJ 40 MG/1 ML VIAL (J2920) IV SCH (06:13)
[2016-07-03 07:24] LABS: MEAN CORPUSCULAR HGB CONC 32.7 g/dl (32.0-36.5); MEAN CORPUSCULAR VOLUME 82.6 fl (80.0-96.0); WHITE BLOOD COUNT 12.5 K/mm3 (4.0-10.0)
[2016-07-03 07:38] LABS: CALCIUM LEVEL 8.5 MG/DL (8.8-10.2); CREATININE FOR GFR 1.27 MG/DL (0.55-1.02); GLOMERULAR FILTRATION RATE 42.6 (>32); MAGNESIUM LEVEL 2.4 MG/DL (1.8-2.4); POTASSIUM SERUM 4.1 MEQ/L (3.5-5.1)
[2016-07-03] MEDS: ADVAIR DISKUS 500/50 INH PWD INH SCH ×2 (07:48→18:26)
[2016-07-03] MEDS: predniSONE 50 MG TAB PO SCH (09:07)
[2016-07-03] MEDS: SENOKOT S TAB PO SCH ×2 (09:07→19:44)
[2016-07-03] MEDS: MULTIVITAMINS/MINERALS THERAP 1 TAB PO SCH (09:08)
[2016-07-03] MEDS: METOPROLOL TART 25 MG TABLET PO SCH ×2 (09:08→19:44)
[2016-07-03] MEDS: guaiFENesin ER 600 MG TAB PO SCH ×2 (09:08→19:45)
[2016-07-03] MEDS: ISOSORBIDE MON. (IMDUR) 30 MG XR TAB PO SCH (09:09)
[2016-07-03] MEDS: amLODIPine 10 MG TAB PO SCH (09:09)
[2016-07-03] MEDS: PANTOPRAZOLE 40MG TAB (PROTONIX) PO SCH (09:12)
[2016-07-03 14:00] VITALS: BP 137/78
[2016-07-03] MEDS: LevoFLOXacin IV 500 MG in APPROPRIATE DILUENT 1 EA IV SCH (17:57)
--- NOTE | 2016-07-03 18:22 | IPN ---
DATE OF SERVICE: 07/03/2016 The patient is examined. improvement of her cough. Does cough up significant phlegm. Denies any chest pain, pressure or discomfort. Able to ambulate. VITAL SIGNS: Temperature 98.2, pulse 104, respirations 18, blood pressure 136/80. Pulse oximetry 91% on room air. LABORATORY DATA: WBC 12.5, hemoglobin 10.3, hematocrit 31.6. Platelets 337. Chemistry: Sodium 142, potassium 4.1, chloride 107, bicarbonate 25, BUN 31, creatinine 1.27, C reactive protein 13.5. PHYSICAL EXAMINATION GENERAL: The patient is comfortable, alert and oriented times three in no acute distress. Frail. HEENT: Normocephalic atraumatic. PULMONARY: Bilateral coarse breath sounds, no significant wheeze. CARDIAC: Regular rate and rhythm. Normal S1. S2. ABDOMEN: Soft, nontender, positive bowel sounds. EXTREMITIES: Multiple deformed nodules bilateral upper and lower extremities. No edema bilateral lower extremities. ASSESSMENT AND PLAN: This is an 81-year-old female patient with underlying medical history of rheumatoid arthritis, hypertension, dementia, dyslipidemia with questionable history of chronic pulmonary obstructive disease (COPD) admitted for acute bronchitis with left lower lobe pneumonia. Respiratory panel positive for coronal virus. PROBLEMS: 1. Acute bronchitis with left lower lobe pneumonia. Respiratory panel positive for coronal virus. Taper steroids. Nebulizer treatment. Mucinex acapella. Advair , Levaquin, follow C reactive protein, follow cultures. 2. Leukocytosis secondary to steroids. Currently improved. Continue treatment as above. Continue antibiotics. 3. Hypertension. Continue home medications. Monitor blood pressure. Adjust as needed. 4. Dementia. Continue current medications and supportive care. 5. Deep venous thrombosis (DVT) prophylaxis. Heparin subcutaneous. 6. Patient admitted with acute hypoxic respiratory failure, currently returning to baseline. Wean off oxygen. Continue treatment as above. DISPOSITION PLANNING: The patient is DO NOT RESUSCITATE/ DO NOT INTUBATE. Physical therapy/occupation therapy (PT/OT). Likely discharged in the next 24 hours. SHIELA
[2016-07-03] MEDS: DONEPEZIL 5 MG TAB PO SCH (19:45)
[2016-07-03 22:00] VITALS: BP 142/71
[2016-07-04] MEDS: IPRATROPIUM 0.5MG/ALBUTEROL 2.5MG INH SOL UD 3ML (DUONEB)(J7620) NEB SCH ×2 (01:00→07:04)
[2016-07-04] MEDS: HEPARIN SOD (PORCINE) 5000 UNITS/ML VIAL SC SCH (05:10)
[2016-07-04 06:00] VITALS: BP 178/81
[2016-07-04] MEDS: ADVAIR DISKUS 500/50 INH PWD INH SCH (07:04)
[2016-07-04 07:16] LABS: MEAN CORPUSCULAR HEMOGLOBIN 26.3 pg (27.0-33.0); MEAN CORPUSCULAR HGB CONC 31.6 g/dl (32.0-36.5); MEAN CORPUSCULAR VOLUME 83.3 fl (80.0-96.0); RED CELL DISTRIBUTION WIDTH 15.9 % (11.5-14.5); WHITE BLOOD COUNT 9.4 K/mm3 (4.0-10.0)
[2016-07-04 07:33] LABS: CALCIUM LEVEL 8.8 MG/DL (8.8-10.2); CREATININE FOR GFR 1.39 MG/DL (0.55-1.02); GLOMERULAR FILTRATION RATE 38.4 (>32); MAGNESIUM LEVEL 2.2 MG/DL (1.8-2.4); POTASSIUM SERUM 3.7 MEQ/L (3.5-5.1)
[2016-07-04] MEDS ORDERED: LEVA500T PO (08:15)
[2016-07-04] MEDS: SENOKOT S TAB PO SCH (09:00)
[2016-07-04] MEDS: MULTIVITAMINS/MINERALS THERAP 1 TAB PO SCH (09:12)
[2016-07-04] MEDS: ISOSORBIDE MON. (IMDUR) 30 MG XR TAB PO SCH (09:12)
[2016-07-04] MEDS: METOPROLOL TART 25 MG TABLET PO SCH (09:12)
[2016-07-04] MEDS: predniSONE 50 MG TAB PO SCH (09:12)
[2016-07-04 09:13] VITALS: BP 178/81
[2016-07-04] MEDS: amLODIPine 10 MG TAB PO SCH (09:13)
[2016-07-04] MEDS: guaiFENesin ER 600 MG TAB PO SCH (09:13)
[2016-07-04] MEDS: PANTOPRAZOLE 40MG TAB (PROTONIX) PO SCH (09:13)
[2016-07-04 12:15] VITALS: BP 170/80
--- NOTE | 2016-07-05 20:48 | DSES ---
DATE OF ADMISSION: 07/01/2016 DATE OF DISCHARGE: 07/04/2016 PRIMARY CARE PROVIDER: Dr. Sumi Mendes. FINAL DIAGNOSES: 1. Acute bronchitis secondary to coronavirus. 2. Left lower lobe pneumonia. 3. Leukocytosis secondary to steroids. 4. Hypertension. 5. Dementia. 6. Acute hypoxic respiratory failure. HISTORY OF PRESENT ILLNESS: This is an 85 female patient with underlying medical history of dementia, dyslipidemia, rheumatoid arthritis, hypertension, from rehabilitation, very poor historian, who presented with a two-day history of progressive worsening cough, shortness of breath, and not on oxygen at baseline, cough productive of yellow phlegm, and was found to be with worsening hypoxia and subsequently sent to the hospital. Denies any fever, chills, chest pain, pressure or discomfort. Denies any abdominal pain. Reported significant dyspnea and cough. Denies any nausea or vomiting. HOSPITAL COURSE: The patient was admitted to the hospital. Sputum culture was sent. Respiratory panel showed coronavirus. The patient was treated with steroids, nebulizer treatments. Antibiotics were given to the patient. Given x-rays, show evidence of pneumonia. Mucinex, Advair have been given. C-reactive protein was followed. Steroids were tapered. Oxygen supplementation provided and weaned off. The patient's condition progressively improved. Physical therapy was ordered. Patient tolerating oral. Reported improvement in the cough. Comfortable, ready to be discharged for further care as outpatient. Temperature 98.6, pulse 85, respirations 14, blood pressure 170/80, pulse oximetry 91% on room air. LABORATORY DATA: WBC 9.4, hemoglobin and hematocrit 10 over 31.7, platelets 322. Chemistry: Sodium 141, potassium 3.7, chloride 107, bicarbonate 24, BUN 34, creatinine 1.39. C-reactive protein went from 19.2 to 6.75 upon discharge. DISCHARGE MEDICATIONS: Levaquin 500 mg by mouth daily for four more days The patient's home medications of: - acetaminophen 650 mg by mouth three times a day - albuterol nebulizer treatment four times a day and every four hours as needed - Norvasc 10 mg by mouth daily - Dulcolax rectal suppository 10 mg daily as needed - donepezil 5 mg by mouth every evening - Arava 10 mg by mouth daily - lidocaine ointment topical twice a day as needed - metoprolol 75 mg by mouth daily - milk of magnesia 30 mL by mouth daily as needed - multivitamin one tablet by mouth daily - steroid taper prednisone - Fleet enema daily as needed - tramadol 25 mg by mouth every six hours as needed - cough syrup four times a day as needed will continue DISCHARGE INSTRUCTIONS: The patient is instructed to followup with primary care provider in 5-7 days. Repeat kidney function as outpatient in 5-7 days with primary care provider, and return to hospital if symptoms worsen.
== END 2016-07-04 13:00 | DRG 193 ==
LOC: M ED 15:47 → M ED INP 20:13 → M MS5PR 07-02 16:55
PROVIDERS: ADMIT Hospitalist; ATTEND Internal Medicine
DX: J12.89 Other viral pneumonia (principal); J96.01 Acute respiratory failure with hypoxia; J20.8 Acute bronchitis due to other specified organisms; B97.29 Other coronavirus as the cause of diseases classified elsewhere; I10 Essential (primary) hypertension; F03.90 Unspecified dementia, unspecified severity, without behavioral disturbance, psychotic disturbance, mood disturbance, and anxiety; E78.5 Hyperlipidemia, unspecified; Z66 Do not resuscitate; M06.9 Rheumatoid arthritis, unspecified; D72.829 Elevated white blood cell count, unspecified; Z79.52 Long term (current) use of systemic steroids; Z79.899 Other long term (current) drug therapy; Z88.0 Allergy status to penicillin; Z90.710 Acquired absence of both cervix and uterus; Z87.891 Personal history of nicotine dependence

== ENCOUNTER → 2016-07-29 | Outpatient (REF) | payer MEDICARE ==
[~2016-07-29] MED LIST changes: +ACET-654 PO; +ALBU83IN INH; +DULC10SU2 PR; +ENEMENE3 PR; +LEVA500T PO; +LIDO1OIN2 TOP; +METO75TA PO; +MILKSUS PO; +PRED20TA PO; +TUSSLIQ PO; +VITMTA PO
== END ==
LOC: SKLAB7 07:06
PROVIDERS: ATTEND Internal Medicine
DX: R39.81 Functional urinary incontinence (principal)

== ENCOUNTER → 2016-09-17 | Outpatient (REF) | payer MEDICARE ==
[2016-09-17 14:20] LABS: BASO % 0.6 % (0.0-1.0); EOS # 0.2 K/mm3 (0.0-0.50); EOS % 2.6 % (0.0-3.0); LARGE UNSTAINED CELL # 0.1 K/mm3 (0.0-0.4); LARGE UNSTAINED CELL % 0.9 % (0.0-4.0); LYMPH % 16.2 % (24.0-44.0); MEAN CORPUSCULAR HEMOGLOBIN 26.5 pg (27.0-33.0); MEAN CORPUSCULAR HGB CONC 31.1 g/dl (32.0-36.5); MEAN CORPUSCULAR VOLUME 85.2 fl (80.0-96.0); MONO # 0.3 K/mm3 (0.0-0.8); MONO % 4.9 % (0.0-5.0); NEUTROPHILS # 4.4 K/mm3 (1.8-7.7); NEUTROPHILS % 74.8 % (36.0-66.0); PLATELET COUNT, AUTOMATED 369 k/mm3 (150-450); RED CELL DISTRIBUTION WIDTH 16.2 % (11.5-14.5); WHITE BLOOD COUNT 5.8 K/mm3 (4.0-10.0)
[2016-09-17 14:34] LABS: CALCIUM LEVEL 8.4 MG/DL (8.8-10.2); CREATININE FOR GFR 1.49 MG/DL (0.55-1.02); GLOMERULAR FILTRATION RATE 35.3 (>32); POTASSIUM SERUM 4.1 MEQ/L (3.5-5.1)
== END ==
LOC: SKLAB7 13:42
PROVIDERS: ATTEND Internal Medicine
DX: J02.9 Acute pharyngitis, unspecified (principal)

== ENCOUNTER → 2016-12-04 | Outpatient (REF) | payer MEDICARE ==
[~2016-12-04] MED LIST changes: -ACET-654 PO; +ACET1TAB17 PO; +ENEMENE16 PR; -ENEMENE3 PR; +LEVA1TAB2 PO; -LEVA500T PO; +METO50TA7 PO; +TRAZ-136 PO; -TRAZ100T4 PO; +TRAZ50TA11 PO; -TRAZ50TA4 PO
[2016-12-04 09:34] LABS: MEAN CORPUSCULAR HEMOGLOBIN 25.8 pg (27.0-33.0); MEAN CORPUSCULAR HGB CONC 29.9 g/dl (32.0-36.5); MEAN CORPUSCULAR VOLUME 86.2 fl (80.0-96.0); WHITE BLOOD COUNT 7.4 K/mm3 (4.0-10.0)
[2016-12-04 09:37] LABS: CALCIUM LEVEL 8.5 MG/DL (8.8-10.2); CREATININE FOR GFR 1.15 MG/DL (0.55-1.02); GLOMERULAR FILTRATION RATE 47.6 (>32); POTASSIUM SERUM 4.1 MEQ/L (3.5-5.1)
== END ==
LOC: SKLAB7 09:16
PROVIDERS: ATTEND Internal Medicine
DX: I10 Essential (primary) hypertension (principal); Z51.81 Encounter for therapeutic drug level monitoring; Z79.899 Other long term (current) drug therapy

== ENCOUNTER → 2017-01-21 | Outpatient (REF) ==
[2017-01-21 17:08] LABS: CALCIUM LEVEL 9.1 MG/DL (8.8-10.2); CREATININE FOR GFR 1.46 MG/DL (0.55-1.02); GLOMERULAR FILTRATION RATE 36.2 (>32); POTASSIUM SERUM 4.4 MEQ/L (3.5-5.1)
== END ==
LOC: SKLAB7 15:54
PROVIDERS: ATTEND Internal Medicine
DX: R41.0 Disorientation, unspecified (principal)

== ENCOUNTER → 2017-01-22 | Outpatient (REF) | payer MEDICARE ==
[2017-01-22 13:30] LABS: YEAST LIKE CELL URINE AUTO SMALL
== END ==
LOC: SKLAB7 10:12
PROVIDERS: ATTEND Internal Medicine
DX: R41.0 Disorientation, unspecified (principal)

== ENCOUNTER → 2017-01-23 | Outpatient (REF) | payer MEDICARE | LOC: SKLAB7 14:01 | PROVIDERS: ATTEND Family Medicine | DX: R35.0 Frequency of micturition (principal) ==

== ENCOUNTER → 2017-01-27 | Outpatient (REF) | payer MEDICARE ==
[2017-01-27 09:56] LABS: CALCIUM LEVEL 9.3 MG/DL (8.8-10.2); CREATININE FOR GFR 1.33 MG/DL (0.55-1.02); GLOMERULAR FILTRATION RATE 40.3 (>32); POTASSIUM SERUM 3.9 MEQ/L (3.5-5.1)
== END ==
LOC: SKLAB7 07:00
PROVIDERS: ATTEND Internal Medicine
DX: R53.83 Other fatigue (principal)

== ENCOUNTER → 2017-03-31 | Outpatient (REF) | payer MEDICARE ==
--- NOTE | 2017-03-31 12:08 | REP ---
Portable chest x-ray: Sitting AP view. History: Cough. Comparison chest x-ray July 01, 2016. Findings: The patient is rotated somewhat to the right for the current exposure. No infiltrate is seen. There is, however, soft tissue nodular density 1.6 cm in diameter projecting over the right lateral lower chest. There is a granulomatous calcification in the left perihilar region unchanged. Lung velazquez are otherwise clear. Heart is not enlarged. The aorta is calcific. There are clips in the soft tissues of the right neck. Diffuse osteopenia is noted. Impression: 1.6 cm nodule in the right lower lung zone. Consider chest CT study. Otherwise no acute disease. Signed by Lane Wilhelm MD 03/31/2017 04:00 P
[2017-03-31 15:55] LABS: CALCIUM LEVEL 8.8 MG/DL (8.8-10.2); CREATININE FOR GFR 1.5 MG/DL (0.55-1.02); GLOMERULAR FILTRATION RATE 35.1 (>32); POTASSIUM SERUM 4.2 MEQ/L (3.5-5.1)
== END ==
LOC: SKLAB7 10:54
PROVIDERS: ATTEND Internal Medicine
DX: R05 Cough (principal); R91.1 Solitary pulmonary nodule

== ENCOUNTER → 2017-04-03 | Outpatient (CLI) | payer MEDICARE ==
[~2017-04-03] MED LIST changes: +ISOVUE-370 76% 100ML VIAL (Q9967) As Ordered ONE
--- NOTE | 2017-04-03 12:24 | REP ---
CT of the chest with IV contrast: The patient had a right lung nodule identified on a portable chest dated 04/08/2017, not present on the PA and lateral chest dated 07/01/2016. By CT. The nodule is again identified. By CT and is in the lateral segment of the right middle lobe on image 55. Measures [address] and is noncalcified. This is on image 54. On image 55 there is a 8 mm pleural-based nodule in the medial segment of the right middle lobe. 861 there is a 6 mm pleural-based nodule in the lateral segment right middle lobe. On image 49 there is a right paravertebral soft tissue mass measuring 0.4 centimeters. On image 41 there is a 3 mm nodule in the lateral segment of the right lower lobe. The image 41 there is a calcified granuloma in the left lower lobe measuring 4 mm. On image 24 there is a 4 ml calcified granuloma posteriorly in the superior segment right lower lobe. There is a 22 mm lucent lesion medially in the left humeral head. This has violated the cortex and extends posteromedially into the left subscapular chest wall. The subscapular soft tissue component measures 5.4 cm. The adjacent ribs and left scapula are unremarkable. There is no mediastinal or hilar lymph node enlargement. There are a few calcified lymph nodes in the right hilus. There is no axillary lymphadenopathy. Thoracic aorta is unremarkable except for calcified atheroma. Cardiac size normal. No pericardial effusion. In the upper abdomen. The left kidney demonstrates cortical atrophy compared to the right. There are gallbladder calcifications. There is no adrenal mass. The visualized hepatic parenchyma is homogeneous. There is a small hiatal hernia. Impression: Multiple lung nodules as described. Lucent lesion in the left humeral head violating the medial cortex with a soft tissue mass extending into the subscapular area of the left chest wall. Calcified granulomas as described. Right paravertebral soft tissue mass as described. Cholelithiasis. Left renal cortical atrophy. Signed by Sabino Cobian MD 04/03/2017 12:16 P
== END ==
LOC: M RAD 09:54
PROVIDERS: ATTEND Internal Medicine
DX: R91.1 Solitary pulmonary nodule (principal)
CPT/HCPCS: 71260; Q9967

== ENCOUNTER → 2017-06-04 | Outpatient (REF) | payer MEDICARE ==
[2017-06-04 09:19] LABS: HEMATOCRIT 30.2 % (36.0-47.0); HEMOGLOBIN 9.2 g/dl (12.0-16.0); MEAN CORPUSCULAR HGB CONC 30.5 g/dl (32.0-36.5); MEAN CORPUSCULAR VOLUME 82.1 fl (80.0-96.0); PLATELET COUNT, AUTOMATED 344 10^3/uL (150-450); RED BLOOD COUNT 3.68 10^6/uL (4.00-5.40); RED CELL DISTRIBUTION WIDTH 17.2 % (11.5-14.5); WHITE BLOOD COUNT 6.8 10^3/uL (4.0-10.0)
== END ==
LOC: SKLAB7 07:24
DX: Z79.899 Other long term (current) drug therapy (principal)
CPT/HCPCS: 36415

== ENCOUNTER → 2017-06-12 | Outpatient (REF) | payer MEDICARE | LOC: SKLAB7 08:21 | DX: K08.89 Other specified disorders of teeth and supporting structures (principal); K02.9 Dental caries, unspecified | CPT/HCPCS: 70355 ==

== ENCOUNTER → 2017-07-09 | Outpatient (REF) | payer MEDICARE ==
[2017-07-09 14:56] LABS: ALBUMIN 2.5 GM/DL (3.2-5.2); ALBUMIN/GLOBULIN RATIO 0.71 (1.00-1.93); ALKALINE PHOSPHATASE 145 U/L (45-117); ALT/SGPT 11 U/L (12-78); AST/SGOT 19 U/L (7-37); BILIRUBIN,DIRECT 0.1 MG/DL (0.0-0.2); BILIRUBIN,TOTAL 0.4 MG/DL (0.2-1.0)
== END ==
LOC: SKLAB7 13:02
DX: Z79.899 Other long term (current) drug therapy (principal)
CPT/HCPCS: 80076

== ENCOUNTER → 2017-11-10 | Outpatient (REF) | payer MEDICARE ==
[2017-11-10 12:11] LABS: HEMATOCRIT 24.7 % (36.0-47.0); HEMOGLOBIN 7.6 g/dl (12.0-15.5); MEAN CORPUSCULAR HEMOGLOBIN 27.9 pg (27.0-33.0); MEAN CORPUSCULAR HGB CONC 30.8 g/dl (32.0-36.5); MEAN CORPUSCULAR VOLUME 90.8 fl (80.0-96.0); PLATELET COUNT, AUTOMATED 361 10^3/uL (150-450); RED BLOOD COUNT 2.72 10^6/uL (4.00-5.40); RED CELL DISTRIBUTION WIDTH 15.9 % (11.5-14.5)
[2017-11-10 12:59] LABS: ANION GAP 11 MEQ/L (8-16); BLOOD UREA NITROGEN 51 MG/DL (7-18); CARBON DIOXIDE LEVEL 21 MEQ/L (21-32); CHLORIDE LEVEL 111 MEQ/L (98-107); CREATININE FOR GFR 2.32 MG/DL (0.55-1.30); GLOMERULAR FILTRATION RATE 21.1 (>32); GLUCOSE, FASTING 115 MG/DL (70-100); POTASSIUM SERUM 4.5 MEQ/L (3.5-5.1); SODIUM LEVEL 143 MEQ/L (136-145)
== END ==
LOC: SKLAB7 10:30
DX: R91.1 Solitary pulmonary nodule (principal)
CPT/HCPCS: 71045

== ENCOUNTER 2017-11-11 19:30 | Observation (INO) | payer MEDICARE ==
[2017-11-11 21:44] LABS: HEMATOCRIT 24.6 % (36.0-47.0); HEMOGLOBIN 7.6 g/dl (12.0-15.5); MEAN CORPUSCULAR HEMOGLOBIN 27.2 pg (27.0-33.0); MEAN CORPUSCULAR HGB CONC 30.9 g/dl (32.0-36.5); MEAN CORPUSCULAR VOLUME 88.2 fl (80.0-96.0); PLATELET COUNT, AUTOMATED 421 10^3/uL (150-450); RED BLOOD COUNT 2.79 10^6/uL (4.00-5.40); RED CELL DISTRIBUTION WIDTH 15.6 % (11.5-14.5); WHITE BLOOD COUNT 13.7 10^3/uL (4.0-10.0)
[2017-11-11 21:52] LABS: INR 0.93; PROTHROMBIN TIME 12.6 SECONDS (12.1-14.4)
[2017-11-11 21:53] LABS: BASO % 0.1 % (0.0-1.0); IMMATURE GRANULOCYTE # 0.2 10^3/uL (0-0); IMMATURE GRANULOCYTE % 1.5 % (0-3.0); LYMPH # 0.4 10^3/uL (1.5-4.5); LYMPH % 2.9 % (24.0-44.0); MONO # 0.6 10^3/uL (0.0-0.8); MONO % 4.1 % (0.0-5.0); NEUTROPHILS # 12.5 10^3/uL (1.8-7.7); NEUTROPHILS % 91.4 % (36.0-66.0); PARTIAL THROMBOPLASTIN TIME 32.3 SECONDS (25.4-37.6)
[2017-11-11 22:05] LABS: ANION GAP 9 MEQ/L (8-16); BLOOD UREA NITROGEN 61 MG/DL (7-18); CALCIUM LEVEL 8.5 MG/DL (8.8-10.2); CARBON DIOXIDE LEVEL 24 MEQ/L (21-32); CHLORIDE LEVEL 107 MEQ/L (98-107); CPK CREATINE PHOSPHOKINASE 79 U/L (26-192); CREATININE FOR GFR 2.71 MG/DL (0.55-1.30); GLOMERULAR FILTRATION RATE 17.7 (>32); GLUCOSE, FASTING 115 MG/DL (70-100); SODIUM LEVEL 140 MEQ/L (136-145); TROPONIN I < 0.02 NG/ML (< 0.10)
[2017-11-11 22:06] LABS: CK-MB VALUE MASS 2.2 NG/ML (<3.6); MB/CK RELATIVE INDEX 2.78 (< OR =4)
[2017-11-11 22:10] LABS: DIFF SLIDE NUMBER 348
[2017-11-11 22:29] LABS: POTASSIUM SERUM 5.2 MEQ/L (3.5-5.1)
[2017-11-11 22:39] LABS: FERRITIN 116 NG/ML (8-252); IRON (FE) 46 UG/DL (50-170); PERCENT SATURATION 21.6 % (13.2-45.0); TOTAL IRON BINDING CAPACITY 213 UG/DL (250-450)
[2017-11-11 22:45] LABS: VITAMIN B12 LEVEL 492 PG/ML (247-911)
[2017-11-11 22:46] LABS: FOLATE > 24.0 NG/ML (>5.4)
[2017-11-11 23:45] LABS: IMMEDIATE SPIN CROSSMATCH 1 2
[2017-11-12] MEDS ORDERED: BISACODYL 10 MG SUPP PR (01:15)
[2017-11-12] MEDS ORDERED: ALBUTEROL SULFATE 2.5 MG/0.5 ML INH NEB SOLN INH (01:15)
[2017-11-12] MEDS ORDERED: IPRATROPIUM 0.5MG/ALBUTEROL 2.5MG INH SOL UD 3ML (DUONEB)(J7620) INH (01:15)
[2017-11-12] MEDS ORDERED: MOM 30ML SUSPENSION UDC PO (01:15)
[2017-11-12] MEDS ORDERED: guaiFENesin DM LIQ 10ML UD PO (01:15)
[2017-11-12] MEDS ORDERED: ACETAMINOPHEN 500 MG TAB PO (01:15)
[2017-11-12] MEDS ORDERED: PERCOCET 5MG/325MG TAB PO (01:15)
[2017-11-12] MEDS: ACETAMINOPHEN TAB 650MG DOSE (2X325MG) PO (04:17)
[2017-11-12 06:28] LABS: BASO % 0.2 % (0.0-1.0); HEMATOCRIT 29.7 % (36.0-47.0); HEMOGLOBIN 9.3 g/dl (12.0-15.5); IMMATURE GRANULOCYTE % 1.7 % (0-3.0); LYMPH # 0.5 10^3/uL (1.5-4.5); LYMPH % 4.4 % (24.0-44.0); MEAN CORPUSCULAR HEMOGLOBIN 27.4 pg (27.0-33.0); MEAN CORPUSCULAR HGB CONC 31.3 g/dl (32.0-36.5); MEAN CORPUSCULAR VOLUME 87.6 fl (80.0-96.0); MONO % 8.5 % (0.0-5.0); NEUTROPHILS # 10.2 10^3/uL (1.8-7.7); NEUTROPHILS % 85.2 % (36.0-66.0); PLATELET COUNT, AUTOMATED 341 10^3/uL (150-450); RED BLOOD COUNT 3.39 10^6/uL (4.00-5.40); RED CELL DISTRIBUTION WIDTH 15.5 % (11.5-14.5)
[2017-11-12 06:29] LABS: ANION GAP 9 MEQ/L (8-16); BLOOD UREA NITROGEN 54 MG/DL (7-18); CALCIUM LEVEL 8.3 MG/DL (8.8-10.2); CARBON DIOXIDE LEVEL 23 MEQ/L (21-32); CHLORIDE LEVEL 109 MEQ/L (98-107); CREATININE FOR GFR 2.51 MG/DL (0.55-1.30); GLOMERULAR FILTRATION RATE 19.3 (>32); GLUCOSE, FASTING 87 MG/DL (70-100); POTASSIUM SERUM 4.8 MEQ/L (3.5-5.1); SODIUM LEVEL 141 MEQ/L (136-145)
[2017-11-12 07:58] LABS: SLIDE REVIEW Report; SOURCE PERIPHERAL SMEAR
[2017-11-12] MEDS: predniSONE 5 MG TAB PO (08:55)
[2017-11-12] MEDS: guaiFENesin 200 MG TAB PO (08:55)
[2017-11-12] MEDS: METOPROLOL TART 50 MG TAB PO (08:59)
[2017-11-12] MEDS: amLODIPine 10 MG TAB PO (08:59)
[2017-11-12] MEDS ORDERED: predniSONE 20 MG TAB PO (09:00)
[2017-11-12] MEDS: PERCOCET 5MG/325MG TAB PO (09:01)
== END 2017-11-12 12:01 ==
LOC: M ED INP 19:31 → M MSPAV 11-12 01:21 → M ED 19:30
DX: N18.4 Chronic kidney disease, stage 4 (severe) (principal); D63.1 Anemia in chronic kidney disease; D72.829 Elevated white blood cell count, unspecified; I12.9 Hypertensive chronic kidney disease with stage 1 through stage 4 chronic kidney disease, or unspecified chronic kidney disease; M06.9 Rheumatoid arthritis, unspecified; Z88.0 Allergy status to penicillin; F03.90 Unspecified dementia, unspecified severity, without behavioral disturbance, psychotic disturbance, mood disturbance, and anxiety; Z79.899 Other long term (current) drug therapy
CPT/HCPCS: 71045

== ENCOUNTER → 2017-11-13 | Outpatient (REF) | payer MEDICARE ==
[2017-11-13 07:30] LABS: ANION GAP 9 MEQ/L (8-16); BLOOD UREA NITROGEN 51 MG/DL (7-18); CALCIUM LEVEL 8.2 MG/DL (8.8-10.2); CARBON DIOXIDE LEVEL 27 MEQ/L (21-32); CHLORIDE LEVEL 111 MEQ/L (98-107); CREATININE FOR GFR 2.68 MG/DL (0.55-1.30); GLOMERULAR FILTRATION RATE 17.9 (>32); GLUCOSE, FASTING 82 MG/DL (70-100); SODIUM LEVEL 147 MEQ/L (136-145)
== END ==
LOC: SKLAB7 08:00
DX: N18.9 Chronic kidney disease, unspecified (principal)
CPT/HCPCS: 36415

== ENCOUNTER → 2017-11-16 | Outpatient (REF) | payer MEDICARE | LOC: SKLAB7 14:43 | DX: Z03.89 Encounter for observation for other suspected diseases and conditions ruled out (principal) | CPT/HCPCS: 71045 ==

== ENCOUNTER 2017-11-17 13:00 | Emergency (ER) | payer MEDICARE ==
[2017-11-17] MEDS ORDERED: LORazepam 2 MG/ML VIAL (J2060) As Ordered (14:11)
[2017-11-17] MEDS ORDERED: MORPHINE 4 MG/ML 1ML VIAL/SYRINGE (J2270) As Ordered (14:12)
[2017-11-17] MEDS: LORazepam 2 MG/ML VIAL (J2060) IV (14:15)
[2017-11-17] MEDS: NS 1,000 ML IV (14:15)
[2017-11-17] MEDS: MORPHINE 4 MG/ML 1ML VIAL/SYRINGE (J2270) IV (14:17)
== END 2017-11-17 15:52 | disposition home or self-care (01) ==
LOC: M ED 13:00
DX: S43.002A Unspecified subluxation of left shoulder joint, initial encounter (principal); X58.XXXA Exposure to other specified factors, initial encounter; Y92.89 Other specified places as the place of occurrence of the external cause; J44.9 Chronic obstructive pulmonary disease, unspecified; K21.9 Gastro-esophageal reflux disease without esophagitis; Z79.899 Other long term (current) drug therapy; Z88.0 Allergy status to penicillin; Z87.891 Personal history of nicotine dependence
CPT/HCPCS: J2270